=== PATIENT | female | born 1980 | race Caucasian/White ===

== ENCOUNTER 2020-04-18 00:18 | Emergency (ER) | payer OTHER, MEDICAID ==
[~2020-04-18] VITALS: Ht 160 cm; Wt 72.6 kg
[2020-04-18 00:30] VITALS: BP_SYST 186
[2020-04-18] MEDS ORDERED: LIDOCAINE 1% 10 MG/ML, 20 ML MDV INJ ONE (01:30)
[2020-04-18] MEDS ORDERED: LIDOCAINE 1%, 20 ML MDV 20 ML ONE (01:34)
[2020-04-18] MEDS ORDERED: BACITRACIN ZINC 15 GM TOPICAL OINTMENT TP ONE (02:00)
[2020-04-18] MEDS ORDERED: DIPH-TET-PERTUS Vaccine 0.5 ML VIAL (ADACEL) I.M. ONE (02:00)
[2020-04-18] MEDS ORDERED: BACITRACIN 1 GM OINT TP ONE (02:04)
[2020-04-18 03:00] VITALS: BP_SYST 162
== END 2020-04-18 03:00 | disposition home or self-care (01) ==
LOC: SED 00:18
DX: S81.011A Laceration without foreign body, right knee, initial encounter (principal); E11.9 Type 2 diabetes mellitus without complications; E07.9 Disorder of thyroid, unspecified; Z86.79 Personal history of other diseases of the circulatory system; W25.XXXA Contact with sharp glass, initial encounter; Y93.89 Activity, other specified; Y92.89 Other specified places as the place of occurrence of the external cause; Y99.8 Other external cause status
CPT/HCPCS: 12001; 90471; 90715; 99283; J2001